=== PATIENT | female | born 1955 | race Caucasian/White ===

== ENCOUNTER → 2024-09-22 12:53 | Outpatient (REF) | payer OTHER, SELFPAY | LOC: HWRAD 12:53 | PROVIDERS: ATTENDING PHYSICIAN Internal Medicine Endocrinology, Diabetes & Metabolism; FAMILY PHYSICIAN Family Medicine; PRIMARYCARE PHYSICIAN Internal Medicine Cardiovascular Disease | DX: R93.89 Abnormal findings on diagnostic imaging of other specified body structures (principal) | CPT/HCPCS: 76536 ==